=== PATIENT | female | born 1955 | race American Indian/Alaskan Native ===

== ENCOUNTER 2019-04-30 10:33 | Emergency (ER) | payer BC ==
[2019-04-30] MEDS ORDERED: TETRACAINE 0.5% OU STA (10:39)
[2019-04-30] MEDS ORDERED: REGLAN IV ONE (10:39)
[2019-04-30] MEDS ORDERED: FUL-GLO OP ONE (10:39)
[2019-04-30] MEDS ORDERED: MORPHINE IV ONE (10:39)
--- NOTE | 2019-04-30 10:43 | Emergency Department Report ---
ED Neuro Deficit HPI - General Chief Complaint: Neuro Symptoms/Deficit Stated Complaint: DIZZY Time Seen by Provider: 04/30/19 10:38 Source: patient, family, RN notes reviewed Mode of arrival: Ambulatory Limitations: Physical Limitation - History of Present Illness Initial Comments: This is a 63-year-old female. This patient is not known to this provider previously. She states she does not have a primary care doctor. She states she does not have chronic medical conditions. She presents to the ER as a possible code stroke. The patient complains of left sided throbbing aching pressure headache, sharp, possible retro-orbital, not consistent with any headaches like she's had in the past. She does not specifically states that the headache is sudden or thunderclap in nature. However, the headache is fairly symptomatic. She also describes nonspecific visual loss, possibly binocular. She denies additional pain, with the exception of nontraumatic left-sided neck pain. She denies chest pain and abdominal pain. She denies extremity weakness, numbness. She reports that she needs help to walk. She does not take any anticoagulants. At one point in time, while in CT scan, she reported complete binocular vision loss. Her headache was somewhat improved with Reglan, Benadryl, fentanyl. -: Gradual Location: left face Presenting Symptoms: Present: Sudden, Severe Headache History of same: No Place: home Severity: severe Improves With: none Worsens With: none On Anticoagulants: No Associated Symptoms: headaches, malise - Related Data Home Medications: Home Medications Medication Instructions Recorded Confirmed Last Taken No Known Home Medications [No 04/30/19 04/30/19 Unknown Reported Home Medications] Allergies/Adverse Reactions: Allergies Allergy/AdvReac Type Severity Reaction Status Date / Time No Known Allergies Allergy Unverified 04/30/19 10:38 ED Review of Systems ROS: Stated complaint: DIZZY Other details as noted in HPI Constitutional: denies: fever Eyes: vision change. denies: eye pain ENT: denies: hearing loss Respiratory: denies: cough Cardiovascular: denies: chest pain Gastrointestinal: denies: abdominal pain, vomiting Genitourinary: denies: dysuria Musculoskeletal: arthralgia, myalgia Skin: denies: lesions Neurological: headache, weakness Psychiatric: anxiety Hematological/Lymphatic: denies: easy bleeding ED Past Medical Hx - Past Medical History Previous Medical History?: No - Surgical History Past Surgical History?: No - Medications Home Medications: Home Medications Medication Instructions Recorded Confirmed Last Taken Type No Known Home Medications [No 04/30/19 04/30/19 Unknown History Reported Home Medications] ED Neuro Physical Exam - General Limitations: Physical Limitation General appearance: alert, anxious, in distress, obese Suspected Stroke: No (do not suspect ischemic stroke) - Head Head exam: Present: atraumatic, normocephalic - Eye Eye exam: Present: normal appearance, PERRL (there is no fluorescein uptake. There is a negative Jaquelin sign. Intraocular pressure 20 mmHg right eye, 22 mmHg left eye), EOMI. Absent: nystagmus - ENT ENT exam: Present: normal exam, normal orophraynx, mucous membranes moist, normal external ear exam - Neck Neck exam: Present: normal inspection, full ROM. Absent: tenderness, meningismus - Respiratory Respiratory exam: Present: normal lung sounds bilaterally. Absent: respiratory distress - Cardiovascular Cardiovascular Exam: Present: regular rate, normal rhythm, normal heart sounds. Absent: bradycardia, tachycardia, irregular rhythm, systolic murmur, diastolic murmur, rubs, gallop - GI/Abdominal GI/Abdominal exam: Present: soft. Absent: distended, tenderness, guarding, rebound, rigid, pulsatile mass - Extremities Exam Extremities exam: Present: normal inspection, full ROM, other (2+ pulses noted in the bilateral upper, lower extremities. Compartments soft. No long bony tenderness. The pelvis is stable.). Absent: pedal edema, joint swelling, calf tenderness - Back Exam Back exam: Present: normal inspection, full ROM. Absent: tenderness, CVA tenderness (R), CVA tenderness (L), paraspinal tenderness, vertebral tenderness - Neurological Exam Neurological exam: Present: alert, oriented X3 - NIHSS Assessment Interval: Baseline 1a. Level of Consciousness: alert/keenly responsive 1b. LOC Questions: answers both correctly 1c. LOC Commands: performs tasks correctly 2. Best Gaze: normal 3. Visual: no visual loss 4. Facial Palsy: normal symmetrical movement 5b. Motor Arm Right: no drift 5a. Motor Arm Left: no drift 6a. Motor Leg Left: no drift 6b. Motor Leg Right: no drift 7. Limb Ataxia: absent 8. Sensory: normal 9. Best Language: no aphasia 10. Dysarthria: normal 11. Extinction/Inattention: no abnormality Total Score: 0 Stroke Severity: No Stroke Symptoms - Psychiatric Psychiatric exam: Present: anxious - Skin Skin exam: Present: warm, dry, intact, normal color. Absent: rash ED Course Vital Signs 04/30/19 04/30/19 04/30/19 11:05 11:28 11:38 Temperature 98.2 F Pulse Rate 83 87 Respiratory 20 18 22 Rate Blood Pressure 173/90 148/84 219/113 [Right] O2 Sat by Pulse 97 Oximetry 04/30/19 04/30/19 04/30/19 11:50 12:00 12:15 Temperature Pulse Rate 61 60 62 Respiratory 22 20 20 Rate Blood Pressure 187/92 184/82 142/84 [Right] O2 Sat by Pulse 97 96 96 Oximetry 04/30/19 04/30/19 04/30/19 12:30 15:10 15:11 Temperature Pulse Rate 63 57 L Respiratory 19 18 17 Rate Blood Pressure 155/63 152/71 157/76 [Right] O2 Sat by Pulse 97 96 7 L Oximetry - Reevaluation(s) Reevaluation #1: 04/30/19 13:16 Differential diagnosis, including the not limited to: Migraine headache, tension headache, stress headache, strokes, conversion disorder, complex migraine, transient ischemic attacks, carotid dissection, intracranial hemorrhage Assessment and plan: 63-year-old female with headache, nonspecific loss of vision, now resolved Patient called as a code stroke. TPA not administered as patient has NIH score of 0. Also, we have a suspicion for subarachnoid hemorrhage. Patient seen and evaluated by stroke neurology, who agreed with this plan of care. Spinal tap attempted by myself after written and verbal informed consent was obtained from patient and family, however, spelled Unsuccessful, therefore, fluoroscopically guided spinal tap has been ordered. Noncontrast CT scan of the brain is negative. CT angiogram of the head and neck have been ordered. Patient's headache will be treated symptomatically, and supportively. 04/30/19 13:17 Reevaluation #2: 04/30/19 13:18 Given young age, lack of claudication, lack of temporal tenderness, temporal arteritis is quite unlikely. Patient does not endorse any risk factors concerning for carbon monoxide poisoning.visual acuity intact to finger counting, color perception, reading at a close distance Physical exam findings not consistent with glaucoma. Reevaluation #3: 04/30/19 14:41 Patient resting comfortably, and in no acute distress. The angiogram of the neck is negative for significant disease. LP results pending, angiogram head is pending. Reevaluation #4: 04/30/19 15:32 Lumbar puncture is suggestive of bleed. Angiogram suggests a right-sided aneurysm, without evidence of obvious blush This hospital does not have neurology critical care, or neurosurgery available for consultation. Patient's history, physical, and objective testing suggests a possible aneurysmal leak. Therefore, she requires transfer to higher level of care for service is not available at this facility. Contacted [facility] center, and discussed with neurosurgeon, Dr. Rm Higuera, and neurology critical care, Dr. Last, and we discussed the patient's history, physical, laboratory studies and imaging studies. Keppra is recommended, as well as nimodipine. Consulting neurology critical care does not recommend trans-examic acid or amicar The patient is accepted to [facility] for services not available at this facility The patient has an emergent medical condition which cannot be definitively managed at this hospital, however, she is hemodynamically stable for transfer at this time. 04/30/19 15:33 04/30/19 15:34 04/30/19 15:37 - Lumbar Puncture Consent Obtained: verbal consent, written consent, emergent situation Time Out Performed: Yes Indication for Procedure: headache, R/O SA bleed Patient Position: Sitting Upright/Leaning F Skin Prep: Povidone-Iodine 1% Local Anesthetic Used: Lidocaine 2% Amount of anesthesia used (mls): 10 Spinal Needle Gauge: 20G Spinal Needle Length: 3.5in Interspace Used: L4-L5 Complications: unable to tolerate, unable to obtain CSF Patient Tolerated Procedure: well Additional Comments: After standard written informed consent was obtained, including discussion of risks, benefits, alternatives, lumbar puncture was attempted by this practitioner. Unfortunately, unsuccessful, likely secondary to pickwickian body habitus, therefore, fluoroscopically guided lumbar puncture was requested. It was completed, results are pending. - Lab Data Result diagrams: 04/30/19 11:05 04/30/19 11:05 Lab Results 04/30/19 04/30/19 04/30/19 Range/Units 11:05 11:05 11:05 WBC 5.2 (4.5-11.0) K/mm3 RBC 3.97 (3.65-5.03) M/mm3 Hgb 11.6 (10.1-14.3) gm/dl Hct 34.3 (30.3-42.9) % MCV 86 (79-97) fl MCH 29 (28-32) pg MCHC 34 (30-34) % RDW 14.0 (13.2-15.2) % Plt Count 228 (140-440) K/mm3 Lymph % (Auto) 31.3 (13.4-35.0) % [place] % (Auto) 8.6 H (0.0-7.3) % Eos % (Auto) 1.1 (0.0-4.3) % Baso % (Auto) 1.0 (0.0-1.8) % Lymph # 1.6 (1.2-5.4) K/mm3 [place] # 0.5 (0.0-0.8) K/mm3 Eos # 0.1 (0.0-0.4) K/mm3 Baso # 0.1 (0.0-0.1) K/mm3 Seg Neutrophils % 58.0 (40.0-70.0) % Seg Neutrophils # 3.0 (1.8-7.7) K/mm3 ESR (0-20) mm/Hr PT 13.2 (12.2-14.9) Sec. INR 1.03 (0.87-1.13) APTT 29.8 (24.2-36.6) Sec. Thrombin Time 16.8 (15.1-19.6) Sec. Sodium (137-145) mmol/L Potassium (3.6-5.0) mmol/L Chloride (98-107) mmol/L Carbon Dioxide (22-30) mmol/L Anion Gap mmol/L BUN (7-17) mg/dL Creatinine (0.7-1.2) mg/dL Estimated GFR ml/min BUN/Creatinine Ratio % Glucose (65-100) mg/dL Calcium (8.4-10.2) mg/dL Total Bilirubin (0.1-1.2) mg/dL AST (5-40) units/L ALT (7-56) units/L Alkaline Phosphatase (35-129) units/L Total Creatine Kinase 230 H (30-135) units/L CK-MB (CK-2) 1.5 (0.0-4.0) ng/mL CK-MB (CK-2) Rel Index 0.6 (0-4) Troponin T < 0.010 (0.00-0.029) ng/mL Total Protein (6.3-8.2) g/dL Albumin (3.9-5) g/dL Albumin/Globulin Ratio % CSF Appearance CSF Color CSF WBC (1-10) /mm3 CSF RBC (0-0) /mm3 CSF Glucose mg/dL CSF Total Protein mg/dL 04/30/19 04/30/19 04/30/19 Range/Units 11:05 11:05 Unknown WBC (4.5-11.0) K/mm3 RBC (3.65-5.03) M/mm3 Hgb (10.1-14.3) gm/dl Hct (30.3-42.9) % MCV (79-97) fl MCH (28-32) pg MCHC (30-34) % RDW (13.2-15.2) % Plt Count (140-440) K/mm3 Lymph % (Auto) (13.4-35.0) % [place] % (Auto) (0.0-7.3) % Eos % (Auto) (0.0-4.3) % Baso % (Auto) (0.0-1.8) % Lymph # (1.2-5.4) K/mm3 [place] # (0.0-0.8) K/mm3 Eos # (0.0-0.4) K/mm3 Baso # (0.0-0.1) K/mm3 Seg Neutrophils % (40.0-70.0) % Seg Neutrophils # (1.8-7.7) K/mm3 ESR 86 (0-20) mm/Hr PT (12.2-14.9) Sec. INR (0.87-1.13) APTT (24.2-36.6) Sec. Thrombin Time (15.1-19.6) Sec. Sodium 137 (137-145) mmol/L Potassium 3.8 (3.6-5.0) mmol/L Chloride 101.6 (98-107) mmol/L Carbon Dioxide 19 L (22-30) mmol/L Anion Gap 20 mmol/L BUN 13 (7-17) mg/dL Creatinine 0.8 (0.7-1.2) mg/dL Estimated GFR > 60 ml/min BUN/Creatinine Ratio 16 % Glucose 108 H (65-100) mg/dL Calcium 9.4 (8.4-10.2) mg/dL Total Bilirubin 0.60 (0.1-1.2) mg/dL AST 15 (5-40) units/L ALT 11 (7-56) units/L Alkaline Phosphatase 150 H (35-129) units/L Total Creatine Kinase (30-135) units/L CK-MB (CK-2) (0.0-4.0) ng/mL CK-MB (CK-2) Rel Index (0-4) Troponin T (0.00-0.029) ng/mL Total Protein 8.9 H (6.3-8.2) g/dL Albumin 4.2 (3.9-5) g/dL Albumin/Globulin Ratio 0.9 % CSF Appearance Clear CSF Color Colorless CSF WBC 1 (1-10) /mm3 CSF RBC 311 (0-0) /mm3 CSF Glucose mg/dL CSF Total Protein mg/dL 04/30/19 04/30/19 Range/Units Unknown Unknown WBC (4.5-11.0) K/mm3 RBC (3.65-5.03) M/mm3 Hgb (10.1-14.3) gm/dl Hct (30.3-42.9) % MCV (79-97) fl MCH (28-32) pg MCHC (30-34) % RDW (13.2-15.2) % Plt Count (140-440) K/mm3 Lymph % (Auto) (13.4-35.0) % [place] % (Auto) (0.0-7.3) % Eos % (Auto) (0.0-4.3) % Baso % (Auto) (0.0-1.8) % Lymph # (1.2-5.4) K/mm3 [place] # (0.0-0.8) K/mm3 Eos # (0.0-0.4) K/mm3 Baso # (0.0-0.1) K/mm3 Seg Neutrophils % (40.0-70.0) % Seg Neutrophils # (1.8-7.7) K/mm3 ESR (0-20) mm/Hr PT (12.2-14.9) Sec. INR (0.87-1.13) APTT (24.2-36.6) Sec. Thrombin Time (15.1-19.6) Sec. Sodium (137-145) mmol/L Potassium (3.6-5.0) mmol/L Chloride (98-107) mmol/L Carbon Dioxide (22-30) mmol/L Anion Gap mmol/L BUN (7-17) mg/dL Creatinine (0.7-1.2) mg/dL Estimated GFR ml/min BUN/Creatinine Ratio % Glucose (65-100) mg/dL Calcium (8.4-10.2) mg/dL Total Bilirubin (0.1-1.2) mg/dL AST (5-40) units/L ALT (7-56) units/L Alkaline Phosphatase (35-129) units/L Total Creatine Kinase (30-135) units/L CK-MB (CK-2) (0.0-4.0) ng/mL CK-MB (CK-2) Rel Index (0-4) Troponin T (0.00-0.029) ng/mL Total Protein (6.3-8.2) g/dL Albumin (3.9-5) g/dL Albumin/Globulin Ratio % CSF Appearance Clear CSF Color Colorless CSF WBC 2 (1-10) /mm3 CSF RBC 199 (0-0) /mm3 CSF Glucose 58 mg/dL CSF Total Protein 26 mg/dL - EKG Data -: EKG Interpreted by Nm EKG shows normal: sinus rhythm Rate: bradycardia 04/30/19 15:46 This is a bradycardic rhythm, 84 bpm, normal axis, QTC 446 ms, the EKG is abnormal, the EKG is not consistent with ST elevation myocardial infarction. - Radiology Data Radiology results: report reviewed, image reviewed Noncontrast CT scan of the brain is negative for acute disease Print Report Referring Physician: SAJAN JOHNSTON Patient Name: HARINI GOOD Date of : 1955 Sex: Female Report Date: 2019-04-30 Report Status: Finalized Findings [facility] [address] [place] [address] Cat Scan Report Signed Patient: HARINI GOOD MR#: [id number] : 1955 Acct:[id number] Age/Sex: 63 / F ADM Date: 04/30/19 Loc: ED Attending Dr: Ordering Physician: SAJAN JOHNSTON MD Date of Service: 04/30/19 Procedure(s): CT angio head Accession Number(s): [id number] cc: SAJAN JOHNSTON MD CTA head with and without IV contrast. CLINICAL HISTORY: Cerebrovascular accident. Technique: Multiple contiguous postcontrast CT images of the head were obtained at 0.63 mm intervals.3 plane MIP reconstructions were obtained. Precontrast localizing images were also performed. CT scans at this location are performed using the CT dose reduction for [employer] by means of automated exposure control. FINDINGS: No previous exams available for comparison. There is an aneurysm extending superiorly from the ophthalmic segment of the right ICA measuring 5-6 mm transversely and approximately 7 mm longitudinally. Furthermore, there is a narrowed or tapered in distally which is directed anteriorly. There is no further at CTA evidence of intracranial aneurysm. There is calcification involving the distal internal carotid arteries with mild narrowing of the cavernous segments of bilaterallythere there is mild to moderate narrowing of the anterior genu of the right ICA just proximal to the origin of the aneurysm. 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 There is no clear evidence of significant foca l narrowing. The dural venous sinuses opacify with contrast. 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 There is mild to moderate narrowing of the anterior genu of the right ICA just proximal to the origin of the aneurysm. There is also mild calcification of the cavernous segments of the ICAs bilaterally with mild narrowing. Signer Name: Sajan Beckham MD Signed: 04/30/2019 2:45 PM Workstation Name: [id number] Transcribed By: MR Dictated By: Sajan Beckham MD Electronically Authenticated By: Sajan Beckham MD Signed Date/Time: 04/30/19 6130 Print Report Referring Physician: SAJAN JOHNSTON Patient Name: HARINI GOOD Date of : 1955 Sex: Female Report Date: 2019-04-30 Report Status: Finalized Findings [facility] [address] [place] [address] Cat Scan Report Signed Patient: HARINI GOOD MR#: [id number] : 1955 Acct:[id number] Age/Sex: 63 / F ADM Date: 04/30/19 Loc: ED Attending Dr: Ordering Physician: SAJAN JOHNSTON MD Date of Service: 04/30/19 Procedure(s): CT angio neck Accession Number(s): [id number] cc: SAJAN JOHNSTON MD CTA neck with and without contrast CLINICAL HISTORY: Cerebrovascular accident. Technique: Multiple contiguous postcontrast axial CT images of the neck were obtained at 0.63 mm intervals. 3 plane MIP reconstructions were produced. Precontrast localizing images were also performed. All CT scans at this location are performed using the CT dose reduction for [place] by means of automated exposure control. FINDINGS: No previous exams are available for comparison. There is a small focus of calcification along the medial proximal right ICA. However, there is no significant stenosis involving the carotid arteries bilaterally by NASCET criteria. The vertebral arteries also demonstrate appropriate caliber without significant focal narrowing. The left vertebral artery is somewhat dominant. There is no significant narrowing involving the visualized arch of vessels. All CT scans at this location are performed using the CT dose reduction for ALARA by means of automated exposure control. IMPRESSION: There is no significant stenosis involving the cervical carotid or vertebral arteries by NASCET criteria. Signer Name: Sajan Beckham MD Signed: 04/30/2019 2:35 PM Workstation Name: [id number] Transcribed By: MR Dictated By: Sajan Beckham MD Electronically Authenticated By: Sajan Beckham MD Signed Date/Time: 04/30/19 1435 - Core Measures Measure Exclusions: not indicated - Thrombolytic Inclusion/Exclusion Thrombolytic Contraindications: Rapidily Improving s/s, Symptoms Suggesting SAH Critical Care Time: Yes Critical care time in (mins) excluding proc time.: 60 Critical care attestation.: If time is entered above; I have spent that time in minutes in the direct care of this critically ill patient, excluding procedure time. ED Disposition Clinical Impression: Intracranial aneurysm, Headache, Visual loss Disposition: [id number]/TX-02 SHRT-TRM GEN HOSP IP Is pt being admited?: No Does the pt Need Aspirin: No Condition: Serious Referrals: YAA ANGELES MD [Primary Care Provider] - 3-5 Days
--- NOTE | 2019-04-30 10:56 | Consultation ---
History of Present Illness Consult date: 04/30/19 Medications and Allergies Allergies Allergy/AdvReac Type Severity Reaction Status Date / Time No Known Allergies Allergy Unverified 04/30/19 10:38 - Assessment Assessment Interval: Baseline - Level of Consciousness 1a. Level of Consciousness: alert/keenly responsive - LOC Questions 1b. LOC Questions: answers both correctly - LOC Command 1c. LOC Commands: performs tasks correctly - Best Gaze 2. Best Gaze: normal - Visual 3. Visual: no visual loss - Facial Palsy 4. Facial Palsy: normal symmetrical movement - Motor Arm 5a. Motor Arm Left: no drift 5b. Motor Arm Right: no drift - Motor Leg 6a. Motor Leg Left: no drift 6b. Motor Leg Right: no drift - Limb Ataxia 7. Limb Ataxia: absent - Sensory 8. Sensory: normal - Best Language 9. Best Language: no aphasia - Dysarthria 10. Dysarthria: normal - Extinction and Inattention 11. Extinction/Inattention: no abnormality - Scoring Total Score: 0 Stroke Severity: No Stroke Symptoms Assessment and Plan Date of Service 04/30/2019 [facility] Comments: Last time known well: _ 9:00 Door time: _1033 [employer] contacted: _1040 [employer] at bedside: _1047 NIHSS assessment time: _1053 consult end time: _11:05 Impression: severe new onset headache, concerning for Subarachnoid Hemorrhage Does (not) meet Large Vessel Occlusion (LVO) screening criteria But CTA head and neck would be indicated to rule out dissection in the patient with new severe left sided headache. Differential Diagnosis: 1. Cardioembolic stroke 2. Small vessel disease/ lacune 3. Thromboembolic, [id number] mechanism 4. Hypercoagulable state-related infarct 5. Transient ischemic attack 6. Thrombotic mechanism, large artery disease tPA decision and other recommendations: _ Patient is not a tPA candidate Head CT did not show any acute hemorrhage. reviewed report (if available) and images; but Subarachnoid Hemorrhage is suspected Reason: _ NIHSS 0 Patient is not a AFSHIN candidate: _ Thrombectomy not considered since large proxi mal intracranial vessel occlusion is not suspected. Recommendations dysphagia screen hold off on aspirin till Subarachnoid Hemorrhage is confidently ruled out CTA head and neck in ER for severe new onset left sided headache (if not feasible then brain MRI/head and neck MRA) LP in ER to rule out Subarachnoid Hemorrhage head of bed flat IV fluids NS administer diphenhydramine (Benadryl) 25 mg IV followed by prochlorperazine (Compazine) 10 mg IV, If headache improves same regimen can be repeated every 8 hours. If hemorrhage is ruled out ketorolac can be added to regimen. if brain MRI shows ischemic stroke then 2D ECHO, lipid panel, HbA1c (Goal LDL<70, HbA1c<7) inpatient neurology consultation Inpatient stroke evaluation as per Neurology/ Internal Medicine Discussed with ED physician/medical staff Please contact [employer] Navigator to reach me if further questions/concerns arise. Reason for Stroke Alert and History of Present Illness: _ Patient is a(n) 63 years old female , with no known past medical history. last known well: 9:00 presented with left frontal headache and nonspecific dizziness (lightheadedness) Review of Systems: Constitutional: Negative except as documented in history of present illness. Eye: Negative except as documented in history of present illness. Ear/Nose/Mouth/Throat: Negative except as documented in history of present illness. Respiratory: Negative except as documented in history of present illness. Cardiovascular: Negative except as documented in history of present illness. Gastrointestinal: Negative except as documented in history of present illness. Musculoskeletal: Negative except as documented in history of present illness. Neurologic: Negative except as documented in history of present illness. Examination: NIHSS Details documented in the note ___ 0 Medical Decision Making: - Extensive number of diagnosis or management options are considered above. - Extensive amount of complex data reviewed. - High risk of complication and/or morbidity or mortality are associated with differential diagnostic considerations above. - There may be Uncertain outcome and increased probability of prolonged functional impairment or high probability of severe prolonged functional impairment associated with some of these differential diagnoses. Medical Data Reviewed: 1.Data reviewed include clinical labs, radiology, Medical Tests; 2.Tests results discussed w/performing or interpreting physician; 3.Obtaining/reviewing old medical records; 4.Obtaining case history from another source; 5.Independent review of image, tracing or specimen. When possible Patient/family were informed the Neurology Consult would happen via TeleHealth consult by way of interactive audio and video telecommunications and consented to receiving care in this manner. Case discussed with the Medical staff. Critical Care notation: I was called to see this critical patient emergently. I personally evaluated this critical patient for acute stroke evaluation and determining their eligibility for IV Alteplase and interventional therapies. I have spent approximately _18_ minutes with the patient, including time at bedside, time discussing the case with other physicians, reviewing plan of care, and time independently reviewing the records and scans.
[2019-04-30] MEDS ORDERED: XYLOCAINE TOPICAL 4% TP ONE (11:05)
[2019-04-30] MEDS ORDERED: BENADRYL IV ONE (11:05)
--- NOTE | 2019-04-30 11:08 | Cat Scan Report ---
CT HEAD WITHOUT CONTRAST INDICATION : Stroke symptoms. Code stroke. TECHNIQUE: Axial imaging performed from the skull apex through the skull base without the use of con trast. Sagittal and coronal reformatted images. All CT scans at this location are performed using C T dose reduction for ALARA by means of automated exposure control. COMPARISON: None FINDINGS: Parenchyma: No acute intracranial hemorrhage or parenchymal abnormality. Ventricles: Ventricles are normal in size and appear symmetric. Bones: No acute osseous abnormality. Sinuses: Sinuses and mastoid air cells are clear. Soft tissues: Soft tissues including the orbits appear normal. IMPRESSION: No acute abnormality. These findings were discussed with Dr. Arreaga in the emergency department at 1057 hours [facility] time. Signer Name: Alex Welsh Jr, MD Signed: 04/30/2019 11:04 AM Workstation Name: [id number]
[2019-04-30 11:12] LABS: Basophils # (Auto) 0.1 K/mm3 (0.0-0.1); Eosinophils # (Auto) 0.1 K/mm3 (0.0-0.4); Eosinophils % (Auto) 1.1 % (0.0-4.3); Hematocrit 34.3 % (30.3-42.9); Hemoglobin 11.6 gm/dl (10.1-14.3); Lymphocytes # (Auto) 1.6 K/mm3 (1.2-5.4); Lymphocytes % (Auto) 31.3 % (13.4-35.0); Mean Corpuscular HGB Conc 34 % (30-34); Mean Corpuscular Volume 86 fl (79-97); Monocytes # (Auto) 0.5 K/mm3 (0.0-0.8); Monocytes % (Auto) 8.6 % (0.0-7.3); Platelet Count 228 K/mm3 (140-440); Red Blood Count 3.97 M/mm3 (3.65-5.03)
[2019-04-30] MEDS ORDERED: XYLOCAINE 2%/EPI 1:100,000 INFILTRATI ONE (11:25)
[2019-04-30 11:34] LABS: Creatine Kinase MB 1.5 ng/mL (0.0-4.0)
[2019-04-30 11:36] LABS: Alanine Aminotransferase 11 units/L (7-56); Albumin 4.2 g/dL (3.9-5); BUN/Creatinine Ratio 16; Blood Urea Nitrogen 13 mg/dL (7-17); Calcium 9.4 mg/dL (8.4-10.2); Hemolysis Index 35
[2019-04-30 11:37] LABS: INR 1.03 (0.87-1.13); Partial Thromboplastin Time 29.8 Sec. (24.2-36.6); Thrombin Time 16.8 Sec. (15.1-19.6)
[2019-04-30] MEDS ORDERED: SUBLIMAZE IV ONE ×2 (12:08→16:35)
[2019-04-30 14:36] LABS: Glucose,CSF 58 mg/dL
--- NOTE | 2019-04-30 14:39 | Cat Scan Report ---
CTA neck with and without contrast CLINICAL HISTORY: Cerebrovascular accident. Technique: Multiple contiguous postcontrast axial CT images of the neck were obtained at 0.63 mm inte rvals. 3 plane MIP reconstructions were produced. Precontrast localizing images were also performed. All CT scans at this location are performed using the CT dose reduction for ALARA by means of automat ed exposure control. FINDINGS: No previous exams are available for comparison. There is a small focus of calcification lenoor ng the medial proximal right ICA. However, there is no significant stenosis involving the carotid art eries bilaterally by NASCET criteria. The vertebral arteries also demonstrate appropriate caliber without significant focal narrowing. The left vertebral artery is somewhat dominant. There is no significant narrowing involving the visualize d arch of vessels. All CT scans at this location are performed using the CT dose reduction for ALARA by means of automated exposure control. IMPRESSION: There is no significant stenosis involving the cervical carotid or vertebral arteries by NASCET crite harmeet. Signer Name: Sajan Beckham MD Signed: 04/30/2019 2:35 PM Workstation Name: [id number]
--- NOTE | 2019-04-30 14:49 | Cat Scan Report ---
CTA head with and without IV contrast. CLINICAL HISTORY: Cerebrovascular accident. Technique: Multiple contiguous postcontrast CT images of the head were obtained at 0.63 mm intervals. 3 plane MIP reconstructions were obtained. Precontrast localizing images were also performed. CT scan s at this location are performed using the CT dose reduction for ALACleanApp by means of automated exposure control. FINDINGS: No previous exams available for comparison. There is an aneurysm extending superiorly from the ophthalmic segment of the right ICA measuring 5-6 mm transversely and approximately 7 mm longitud inally. Furthermore, there is a narrowed or tapered in distally which is directed anteriorly. There i s no further at CTA evidence of intracranial aneurysm. There is calcification involving the distal internal carotid arteries with mild narrowing of the cave rnous segments of bilaterallythere there is mild to moderate narrowing of the anterior genu of the ri ght ICA just proximal to the origin of the aneurysm. 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 There is no c lear evidence of significant focal narrowing. The dural venous sinuses opacify with contrast. 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 There is mild to moderate narrowing of the anterior genu of the right ICA just proximal to the origin of the aneurysm. There is also mild calcification of the cavernous segments of the ICAs bilaterally with mild narrowing. Signer Name: Sajan Beckham MD Signed: 04/30/2019 2:45 PM Workstation Name: [id number]
[2019-04-30 15:09] LABS: Appearance,CSF Clear
[2019-04-30 15:10] LABS: Appearance,CSF Clear; Red Blood Cell,CSF 199 /mm3 (0-0); White Blood Cell,CSF 2 /mm3 (1-10)
[2019-04-30 15:11] LABS: Red Blood Cell,CSF 311 /mm3 (0-0); White Blood Cell,CSF 1 /mm3 (1-10)
[2019-04-30] MEDS ORDERED: KEPPRA 1,000 MG/NS 0.75% 100ML 1,000 MG/100 ML BAG IV ONE (15:31)
--- NOTE | 2019-04-30 15:34 | Procedure Note ---
Date of procedure: 04/30/19 Pre-op diagnosis: subarachnoid hemorrhage Post-op diagnosis: other (no obvious hemorrhage) Procedure: LP under flouro guidance Anesthesia: local Surgeon: ASHANTI VENTURA Estimated blood loss: none Pathology: list (4 tubes / 6cc) Specimen disposition: to lab Condition: stable Disposition: other (back to ER)
--- NOTE | 2019-04-30 15:40 | Fluoroscopy Report ---
LUMBAR PUNCTURE INDICATION : Headache PROCEDURE: The risks (including but not limited to bleeding, infection, and spinal headache) and nikolai efits were explained to the patient and informed consent was obtained. A time out procedure was perf ormed. The procedure site was prepped and draped in the usual sterile fashion and lidocaine was used for local anesthesia. Under fluoroscopic guidance, a 22-gauge spinal needle was advanced into the L3-4 interlaminar space. The opening pressure was 100 mm H2O which was calculated by adding the length of the needle (9 cm) to the height of the CSF column. 4 separate collection tubes were used to obtain CSF. Samples were sent to the lab per the ordering physician specifications for further evaluation. The patient tolerated the procedure well with no complications. IMPRESSION: Successful lumbar puncture as outlined above. Opening pressure was 100 mm H20. Fluoroscopic time: 0.4 Number of fluoroscopic images: 1 Signer Name: Alex Welsh Jr, MD Signed: 04/30/2019 3:35 PM Workstation Name: [id number]
[2019-04-30 15:49] LABS: Total Cells Counted 10 /mm3
[2019-04-30 15:50] LABS: Basophils CSF 0 %
[2019-04-30] MEDS ORDERED: [UNRECOGNIZED DRUG - OTHER] PO ONE (16:00)
[2019-04-30 16:23] VITALS: BP 173/85
[2019-04-30 18:10] LABS: Basophils CSF 0 %; Total Cells Counted 10 /mm3
== END 2019-04-30 17:00 | disposition short-term general hospital (02) ==
LOC: ED 10:33
DX: I67.1 Cerebral aneurysm, nonruptured (principal); H54.7 Unspecified visual loss
CPT/HCPCS: 36415; 62270; 70450; 70496; 70498; 77003; 80053; 82550; 82553; 82947; 84160; 84484; 85025; 85610; 85652; 85670; 85730; 87116; 89051; 93005; 93010; 96374; 96375; 96376; 99291; J1200; J1953; J2270; J2765; J3010; Q9967